=== PATIENT | female | born 1960 | race Caucasian/White ===

== ENCOUNTER → 2021-08-20 | Outpatient (CLI) | payer BC | END | disposition home or self-care (01) | LOC: RESCLI 08:50 | PROVIDERS: ATTEND Internal Medicine | DX: E11.65 Type 2 diabetes mellitus with hyperglycemia (principal); J30.2 Other seasonal allergic rhinitis; E56.9 Vitamin deficiency, unspecified; I87.8 Other specified disorders of veins; E66.01 Morbid (severe) obesity due to excess calories; Z90.49 Acquired absence of other specified parts of digestive tract; Z79.82 Long term (current) use of aspirin; Z79.84 Long term (current) use of oral hypoglycemic drugs; Z79.899 Other long term (current) drug therapy; Z98.890 Other specified postprocedural states ==

== ENCOUNTER → 2022-02-19 | Outpatient (CLI) | payer BC | END | disposition home or self-care (01) | LOC: RESCLI 00:26 | PROVIDERS: ATTEND Internal Medicine | DX: E11.65 Type 2 diabetes mellitus with hyperglycemia (principal); E56.9 Vitamin deficiency, unspecified; I87.8 Other specified disorders of veins; B35.9 Dermatophytosis, unspecified; E78.5 Hyperlipidemia, unspecified; J30.2 Other seasonal allergic rhinitis; I10 Essential (primary) hypertension; Z79.899 Other long term (current) drug therapy; Z79.82 Long term (current) use of aspirin ==

== ENCOUNTER → 2022-10-21 | Outpatient (CLI) | payer BC | END | disposition home or self-care (01) | LOC: RESCLI 01:09 | PROVIDERS: ATTEND Student in an Organized Health Care Education/Training Program | DX: E11.65 Type 2 diabetes mellitus with hyperglycemia (principal); I10 Essential (primary) hypertension; B35.9 Dermatophytosis, unspecified; E78.5 Hyperlipidemia, unspecified; I87.8 Other specified disorders of veins; J30.2 Other seasonal allergic rhinitis; E56.9 Vitamin deficiency, unspecified; Z88.1 Allergy status to other antibiotic agents; Z98.890 Other specified postprocedural states; Z90.49 Acquired absence of other specified parts of digestive tract; Z82.3 Family history of stroke; Z80.3 Family history of malignant neoplasm of breast; Z72.89 Other problems related to lifestyle; Z79.82 Long term (current) use of aspirin; Z79.899 Other long term (current) drug therapy ==

== ENCOUNTER → 2023-10-10 | Outpatient (CLI) | payer BC | END | disposition home or self-care (01) | LOC: RESCLI 01:42 | PROVIDERS: ATTEND Internal Medicine | DX: E11.65 Type 2 diabetes mellitus with hyperglycemia (principal); E56.9 Vitamin deficiency, unspecified; J30.2 Other seasonal allergic rhinitis; I87.8 Other specified disorders of veins; E78.5 Hyperlipidemia, unspecified; I10 Essential (primary) hypertension; Z98.890 Other specified postprocedural states; Z86.16 Personal history of COVID-19; Z79.82 Long term (current) use of aspirin; Z79.84 Long term (current) use of oral hypoglycemic drugs; Z79.899 Other long term (current) drug therapy ==